=== PATIENT | female | born 1985 | race American Indian/Alaskan Native ===

== ENCOUNTER 2021-02-18 20:17 | Observation (INO) | payer OTHER ==
--- NOTE | 2021-02-18 20:30 | Emergency Department Report ---
HPI - General Time Seen by Provider: 02/18/21 20:19 - HPI HPI: This is a 35-year-old -Armenian female presents to the emergency department via EMS from home with a complaint of weakness, hypoglycemia, and then left-sided numbness. The patient says that she is unsure who called for 911 but it must have been a family member and the initial EMS call was for weakness. Patient was found to have a blood sugar of about 50. EMS says that she was fatigued but otherwise appeared oriented. She was given some sugar in her Accu-Chek went up to about 70. In route the patient began complaining of left-sided numbness or decreased sensation. Patient denies any past medical hi story. She denies any fever, vision change, slurred speech, headache. The patient was recently diagnosed with being positive for COVID-19. ED Review of Systems ROS: Stated complaint: HYPOGLYCEMIA/ POSS STOKE Other details as noted in HPI Comment: All other systems reviewed and negative Constitutional: denies: chills, fever Eyes: denies: eye pain, vision change ENT: denies: ear pain, throat pain Respiratory: denies: cough, shortness of breath Cardiovascular: denies: chest pain, palpitations Gastrointestinal: denies: abdominal pain, vomiting Genitourinary: denies: dysuria, discharge Musculoskeletal: denies: back pain, arthralgia Skin: denies: rash, lesions Neurological: weakness, numbness Physical Exam - Physical Exam Physical Exam: GENERAL: The patient is well-developed well-nourished. HENT: Normocephalic. Atraumatic. Patient has moist mucous membranes. EYES: Extraocular motions are intact. NECK: Supple. Trachea is midline. CHEST/LUNGS: Clear to auscultation. There is no respiratory distress noted. HEART/CARDIOVASCULAR: Regular. There is no tachycardia. There is no murmur. ABDOMEN: Abdomen is soft, nontender. Patient has normal bowel sounds. There is no abdominal distention. SKIN: Skin is warm and dry. NEURO: The patient is awake, alert, and oriented. The patient is cooperative. No facial asymmetry. Cranial nerves II through XII grossly intact. There is subjective decrease sensation to the left upper and lower extremity when compared to the right. Normal speech. MUSCULOSKELETAL: There is no tenderness or deformity. There is no limitation range of motion. ED Medical Decision Making - Lab Data Result diagrams: 02/18/21 20:28 02/18/21 20:28 Lab Results 02/18/21 02/18/21 02/18/21 Range/Units 20:28 20:28 20:28 WBC 7.0 (4.5-11.0) K/mm3 RBC 4.50 (3.65-5.03) M/mm3 Hgb 13.6 (10.1-14.3) gm/dl Hct 40.1 (30.3-42.9) % MCV 89 (79-97) fl MCH 30 (28-32) pg MCHC 34 (30-34) % RDW 13.3 (13.2-15.2) % Plt Count 286 (140-440) K/mm3 Lymph % (Auto) 40.6 H (13.4-35.0) % Burke % (Auto) 8.1 H (0.0-7.3) % Eos % (Auto) 0.7 (0.0-4.3) % Baso % (Auto) 0.5 (0.0-1.8) % Lymph # (Auto) 2.8 (1.2-5.4) K/mm3 Burke # (Auto) 0.6 (0.0-0.8) K/mm3 Eos # (Auto) 0.1 (0.0-0.4) K/mm3 Baso # (Auto) 0.0 (0.0-0.1) K/mm3 Seg Neutrophils % 50.1 (40.0-70.0) % Seg Neutrophils # 3.5 (1.8-7.7) K/mm3 PT 12.6 (12.2-14.9) Sec. INR 0.89 (0.87-1.13) APTT 25.2 (24.2-36.6) Sec. Thrombin Time 16.3 (15.1-19.6) Sec. Sodium 139 (137-145) mmol/L Potassium 3.9 (3.6-5.0) mmol/L Chloride 103.5 (98-107) mmol/L Carbon Dioxide 26 (22-30) mmol/L Anion Gap 13 mmol/L BUN 14 (7-17) mg/dL Creatinine 0.8 (0.6-1.2) mg/dL Estimated GFR > 60 ml/min BUN/Creatinine Ratio 18 % Glucose 68 (65-100) mg/dL Calcium 9.7 (8.4-10.2) mg/dL Total Bilirubin 0.20 (0.1-1.2) mg/dL AST 14 (5-40) units/L ALT 12 (7-56) units/L Alkaline Phosphatase 50 (35-129) units/L Total Creatine Kinase 145 H (30-135) units/L CK-MB (CK-2) 1.3 (0.0-4.0) ng/mL CK-MB (CK-2) Rel Index 0.8 (0-4) Troponin T < 0.010 (0.00-0.029) ng/mL Total Protein 7.4 (6.3-8.2) g/dL Albumin 4.2 (3.9-5) g/dL Albumin/Globulin Ratio 1.3 % TSH (0.270-4.200) mlU/mL /03/03 Range/Units 20:28 WBC (4.5-11.0) K/mm3 RBC (3.65-5.03) M/mm3 Hgb (10.1-14.3) gm/dl Hct (30.3-42.9) % MCV (79-97) fl MCH (28-32) pg MCHC (30-34) % RDW (13.2-15.2) % Plt Count (140-440) K/mm3 Lymph % (Auto) (13.4-35.0) % Burke % (Auto) (0.0-7.3) % Eos % (Auto) (0.0-4.3) % Baso % (Auto) (0.0-1.8) % Lymph # (Auto) (1.2-5.4) K/mm3 Burke # (Auto) (0.0-0.8) K/mm3 Eos # (Auto) (0.0-0.4) K/mm3 Baso # (Auto) (0.0-0.1) K/mm3 Seg Neutrophils % (40.0-70.0) % Seg Neutrophils # (1.8-7.7) K/mm3 PT (12.2-14.9) Sec. INR (0.87-1.13) APTT (24.2-36.6) Sec. Thrombin Time (15.1-19.6) Sec. Sodium (137-145) mmol/L Potassium (3.6-5.0) mmol/L Chloride (98-107) mmol/L Carbon Dioxide (22-30) mmol/L Anion Gap mmol/L BUN (7-17) mg/dL Creatinine (0.6-1.2) mg/dL Estimated GFR ml/min BUN/Creatinine Ratio % Glucose (65-100) mg/dL Calcium (8.4-10.2) mg/dL Total Bilirubin (0.1-1.2) mg/dL AST (5-40) units/L ALT (7-56) units/L Alkaline Phosphatase (35-129) units/L Total Creatine Kinase (30-135) units/L CK-MB (CK-2) (0.0-4.0) ng/mL CK-MB (CK-2) Rel Index (0-4) Troponin T (0.00-0.029) ng/mL Total Protein (6.3-8.2) g/dL Albumin (3.9-5) g/dL Albumin/Globulin Ratio % TSH 3.030 (0.270-4.200) mlU/mL - EKG Data -: EKG Interpreted by Pa EKG shows normal: sinus rhythm, axis, intervals, QRS complexes, ST-T waves Rate: normal - EKG Data When compared to previous EKG there are: previous EKG unavailable Interpretation: normal EKG - Radiology Data Radiology results: report reviewed NONENHANCED CT SCAN OF THE BRAIN: INDICATION: Stroke symptoms. TECHNIQUE: Routine CT head without contrast. Sagittal and coronal reformatted images were obtained. All CT scans at this location are performed using CT dose reduction for ALARA by means of automated exposure control. COMPARISON: None. FINDINGS: BRAIN / INTRACRANIAL CONTENTS: Hemorrhage: No intracranial hemorrhage; no subarachnoid hemorrhage Stroke mimics: No subdural or epidural hematoma or space taking lesion Acute/subacute territorial infarction: Grajeda-white matter interface: No blurring; normal Insular cortex: Normal Basal ganglia: Normal Wedge shaped parenchymal low density area: Not present Cortical sulci: Not effaced Lacunar infarctions: No acute/subacute lacunae Vasculopathy: Dense middle cerebral artery sign: Not present Internal carotid artery terminus: Normal Basilar artery:Normal Middle cerebral artery branches in the sylvian fissure (Dot sign): Normal Calcified embolus: Not present ASPECT score: 10 Chronic lesions: None White matter: Craniocervical junction: Normal Orbits: Normal Paranasal sinuses/mastoids: Trace fluid accumulation in the left maxillary sinus; mucosal thickening in the left anterior ethmoid air cells Additional findings: None IMPRESSION: No acute subacute infarction - Medical Decision Making EMS was initially called on this patient due to some weakness. She was found to be Covid positive a few days ago. EMS found the patient to have a blood sugar of about 50. She was given some glucose by EMS and blood sugar went up to about 70. At some point during the EMS evaluation the patient complained of left- sided numbness. I evaluated the patient upon arrival and once again the patient says that she has a change in sensation, if not a decrease in sensation, to the left upper and lower extremities when compared to the right side. It is difficult to differentiate between paresthesias and numbness given the patient's description. The patient is a one on the NIH stroke scale, but the symptoms started within 1 hour of presentation so a code stroke was initiated. The patient was seen by the telemedicine neurologist, Dr. Conner, immediately upon return from CT imaging. CT head without contrast did not show any large vessel occlusion, hemorrhage, or any other acute process. Dr. Conner gave the patient a NIH stroke scale of one as well I did not feel that the patient needed CT angiography imaging. However, he did recommend admission for MRI of the brain. Patient's labs have been unremarkable including CBC, metabolic panel, normal thyroid function, negative troponin. EKG did not have any morphology consistent with ST elevation myocardial infarction. Patient will be admitted to the hospital for further evaluation treatment was accepted for admission by the hospitalist, Dr. Conde. Critical Care Time: No Critical care attestation.: If time is entered above; I have spent that time in minutes in the direct care of this critically ill patient, excluding procedure time. ED Disposition Clinical Impression: Stroke-like symptoms, COVID-19, Left sided numbness Disposition: OP ADMIT IP TO THIS HOSP Is pt being admited?: Yes Condition: Fair Time of Disposition: 22:06
[2021-02-18 20:40] LABS: Basophils % (Auto) 0.5 % (0.0-1.8); Eosinophils # (Auto) 0.1 K/mm3 (0.0-0.4); Eosinophils % (Auto) 0.7 % (0.0-4.3); Hematocrit 40.1 % (30.3-42.9); Hemoglobin 13.6 gm/dl (10.1-14.3); Lymphocytes # (Auto) 2.8 K/mm3 (1.2-5.4); Lymphocytes % (Auto) 40.6 % (13.4-35.0); Mean Corpuscular HGB Conc 34 % (30-34); Mean Corpuscular Volume 89 fl (79-97); Monocytes # (Auto) 0.6 K/mm3 (0.0-0.8); Monocytes % (Auto) 8.1 % (0.0-7.3); Platelet Count 286 K/mm3 (140-440); Red Cell Distribution Width 13.3 % (13.2-15.2)
--- NOTE | 2021-02-18 20:45 | Cat Scan Report ---
NONENHANCED CT SCAN OF THE BRAIN: INDICATION: Stroke symptoms. TECHNIQUE: Routine CT head without contrast. Sagittal and coronal reformatted images were obtained. A ll CT scans at this location are performed using CT dose reduction for ALARA by means of automated ex posure control. COMPARISON: None. FINDINGS: BRAIN / INTRACRANIAL CONTENTS: Hemorrhage: No intracranial hemorrhage; no subarachnoid hemorrhage Stroke mimics: No subdural or epidural hematoma or space taking lesion Acute/subacute territorial infarction: Grajeda-white matter interface: No blurring; normal Insular cortex: Normal Basal ganglia: Normal Wedge shaped parenchymal low density area: Not present Cortical sulci: Not effaced Lacunar infarctions: No acute/subacute lacunae Vasculopathy: Dense middle cerebral artery sign: Not present Internal carotid artery terminus: Normal Basilar artery:Normal Middle cerebral artery branches in the sylvian fissure (Dot sign): Normal Calcified embolus: Not present ASPECT score: 10 Chronic lesions: None White matter: Craniocervical junction: Normal Orbits: Normal Paranasal sinuses/mastoids: Trace fluid accumulation in the left maxillary sinus; mucosal thickening in the left anterior ethmoid air cells Additional findings: None IMPRESSION: No acute subacute infarction This exam was performed as part of a code stroke protocol. The exam was completed at [facility] on 02/18/2021 7:36 PM. The exam was reviewed at 7:39 PM and ER physician was notified at 7:41 PM. Signer Name: Cathy Clay MD Signed: 02/18/2021 8:41 PM Workstation Name: [id number]
[2021-02-18 20:47] LABS: INR 0.89 (0.87-1.13); Partial Thromboplastin Time 25.2 Sec. (24.2-36.6)
[2021-02-18 20:48] LABS: Thrombin Time 16.3 Sec. (15.1-19.6)
[2021-02-18 20:58] LABS: Alanine Aminotransferase 12 units/L (7-56); Albumin 4.2 g/dL (3.9-5); BUN/Creatinine Ratio 18; Blood Urea Nitrogen 14 mg/dL (7-17); Calcium 9.7 mg/dL (8.4-10.2); Creatine Kinase MB 1.3 ng/mL (0.0-4.0); Hemolysis Index 2
[2021-02-18] MEDS ORDERED: ASPIRIN 81 MG TAB CHEW PO ONE (21:03)
--- NOTE | 2021-02-18 21:11 | Consultation ---
Medications and Allergies Allergies Allergy/AdvReac Type Severity Reaction Status Date / Time No Known Allergies Allergy Unverified 02/18/21 20:43 Physical Examination - Vital Signs Vital Signs: Vital Signs Pulse Resp Pulse Ox 89 21 99 02/18/21 20:53 02/18/21 20:53 02/18/21 20:53 Results - Laboratory Findings CBC and BMP: 02/18/21 20:28 02/18/21 20:28 Abnormal Lab Findings: Abnormal Labs 02/18/21 02/18/21 20:28 20:28 Lymph % (Auto) 40.6 H [place] % (Auto) 8.1 H Total Creatine Kinase 145 H Assessment and Plan [facility] Consult Note # Demographics Consult Type: Acute Stroke Level 1 (0-4.5 hrs) Patient Location: Emergency Room First Name: Candelaria Last Name: Holger Date of : 1985 Age: 35 Gender: Female Time of Initial Page ( Time): 02/18/2021, 20:20 Time of Return Call ( Time): 02/18/2021, 20:21 # HPI History: 35 yo woman with severe fatigue, shortrness of breath, left-sided weakness, recently COVID positive. Symtpoms improving but still with left-sided numbness Last Known Normal: I have collected independent history specific to time last normal or last known well. We have collaborated with the provider and at this time, we have the most current timeline with the information that is available. 1 hour prior to arrival # Scores Time of exam and NIHSS ( Time): 02/18/2021, 20:43 Level of Consciousness 1a: [0] = Alert; keenly responsive LOC Questions 1b: [0] = Answers both questions correctly LOC Commands 1c: [0] = Performs both tasks correctly Best Gaze 2: [0] = Normal Visual 3: [0] = No visual loss Facial Palsy 4: [0] = Normal symmetrical movements Motor Arm Left 5a: [0] = No drift Motor Arm Right 5b: [0] = No drift Motor Leg Left 6a: [0] = No drift Motor Leg Right 6b: [0] = No drift Limb Ataxia 7: [0] = Absent Sensory 8: [1] = [id number] sensory loss Best Language 9: [0] = No aphasia Dysarthria 10: [0] = Normal Extinction and Inattention 11: [0] = No abnormality NIHSS Total: 1 # Exam Vitals: vital signs reviewed SBP: 131 DBP: 79 # PMH-FH-SH Medications: Oral contraceptives Allergies: NKDA # Assessment Impression: Left-sided numbness. Differential includes stroke, demyelinating, other # Plan Thrombolytic/Intervention: NOT IV Thrombolysis or IA Intervention candidate Thrombolytic Exclusion (< 3 hour window): non-disabling deficit Intraarterial Exclusion: other Symtpoms not suggestive of LVO Imaging: (urgency: routine): MRI Brain without contrast Therapy/Evaluation: NPO until swallow evaluation PT/OT evaluation speech/swallow consultation DVT Prophylaxis: SCD chemical DVT prophylaxis Other: telemetry monitoring would not pursue stroke work-up if MRI is negative I have discussed my recommendations with the referring provider Disposition: admit # Logistics Telemedicine: Interactive 2 way audio and visual telecommunication technology was utilized during this visit
[2021-02-18] MEDS ORDERED: MORPHINE 4 MG/1 ML INJ IV PRN (23:02)
[2021-02-18] MEDS ORDERED: MORPHINE 2 MG/1 ML INJ IV PRN (23:02)
[2021-02-18] MEDS ORDERED: ACETAMINOPHEN 325 MG TAB PO PRN ×2 (23:02)
[2021-02-18] MEDS ORDERED: METOCLOPRAMIDE 10 MG TAB PO PRN (23:02)
[2021-02-18] MEDS ORDERED: MAGNESIUM HYDROXIDE (MOM) ORAL LIQD UDC PO PRN ×2 (23:02)
[2021-02-18] MEDS ORDERED: ONDANSETRON 4 MG/2 ML INJ IV PRN ×2 (23:02)
[2021-02-18] MEDS ORDERED: PROMETHAZINE 25 MG RECT SUPP PR PRN (23:02)
--- NOTE | 2021-02-18 23:18 | History and Physical Report ---
History of Present Illness Date of examination: 02/18/21 Date of admission: 02/18/21 22:06 Chief complaint: Generalized Weakness History of present illness: 35-year-old -Cypriot female who was just recently diagnosed with COVID- 19 was brought into the emergency room today via EMS with a complaint of weakness, hypoglycemia left-sided numbness. Upon arrival of EMS patient was found to have a blood sugar of about 50. She was given some dextrose and repeat Accu-Cheks was said to be above 70. Patient indicates that she was just fatigued and then in route to the hospital was said to have had left-sided numbness and decreased sensation. She denies any headache or dizziness and denies any diaphoresis. She denies any fever or chills, no chest pain or shortness of breath, no nausea vomiting and no abdominal pain. She denies any hematuria or dysuria. Work-up in the emergency room today CT scan of the head was unremarkable. Labs were also within normal limits. Patient was evaluated by the tele-neurologist and recommendation schedule patient for MRI of the brain without contrast. Past History Past Medical History: other (COVID-19 +VE) Past Surgical History: No surgical history Social history: no significant social history Family history: no significant family history Medications and Allergies Allergies Allergy/AdvReac Type Severity Reaction Status Date / Time No Known Allergies Allergy Unverified 02/18/21 20:43 Active Meds: Active Medications Acetaminophen (Acetaminophen 325 Mg Tab) 650 mg PO Q4H PRN PRN Reason: Pain MILD(1-3)/Fever >100.5/OBRIEN Acetaminophen (Acetaminophen 325 Mg Tab) 650 mg PO Q4H PRN PRN Reason: Pain, Mild (1-3) Aspirin (Aspirin 325 Mg Tab) 325 mg PO QDAY JAYNA Atorvastatin Calcium (Atorvastatin 40 Mg Tab) 40 mg PO QHS JAYNA Bisacodyl (Bisacodyl 10 Mg Rect Supp) 10 mg AL QDAY PRN PRN Reason: Constipation Magnesium Hydroxide (Magnesium Hydroxide (Mom) Oral Liqd Udc) 30 ml PO Q4H PRN PRN Reason: Constipation Magnesium Hydroxide (Magnesium Hydroxide (Mom) Oral Liqd Udc) 30 ml PO Q4H PRN PRN Reason: Constipation Metoclopramide HCl (Metoclopramide 10 Mg Tab) 10 mg PO Q6H PRN PRN Reason: Nausea And Vomiting Morphine Sulfate (Morphine 2 Mg/1 Ml Inj) 2 mg IV Q4H PRN PRN Reason: Pain, Moderate (4-6) Morphine Sulfate (Morphine 4 Mg/1 Ml Inj) 4 mg IV Q4H PRN PRN Reason: Pain , Severe (7-10) Ondansetron HCl (Ondansetron 4 Mg/2 Ml Inj) 4 mg IV Q8H PRN PRN Reason: Nausea And Vomiting Ondansetron HCl (Ondansetron 4 Mg/2 Ml Inj) 4 mg IV Q8H PRN PRN Reason: Nausea And Vomiting Promethazine HCl (Promethazine 25 Mg Rect Supp) 25 mg AL Q6H PRN PRN Reason: Nausea And Vomiting Sodium Chloride (Sodium Chloride 0.9% 10 Ml Flush Syringe) 10 ml IV BID JAYNA Sodium Chloride (Sodium Chloride 0.9% 10 Ml Flush Syringe) 10 ml IV PRN PRN PRN Reason: LINE FLUSH Sodium Chloride (Sodium Chloride 0.9% 10 Ml Flush Syringe) 10 ml INJ PRN PRN PRN Reason: LINE FLUSH Review of Systems Constitutional: weakness Ears, nose, mouth and throat: no nasal congestion, no sore throat Cardiovascular: no chest pain, no palpitations Respiratory: no cough, no shortness of breath Gastrointestinal: no abdominal pain, no nausea, no vomiting, no diarrhea Genitourinary Female: no pelvic pain, no flank pain, no dysuria, no hematuria Musculoskeletal: no neck pain, no low back pain Integumentary: no rash, no pruritis Neurological: no headaches, no confusion Psychiatric: no anxiety, no depression Endocrine: no polyphagia, no polydipsia, no polyuria, no nocturia Exam - Constitutional Vitals: Temp Pulse Resp BP Pulse Ox 98.5 F 99 H 18 111/69 100 02/18/21 21:01 02/18/21 21:01 02/18/21 22:45 02/18/21 20:58 02/18/21 22:45 General appearance: Present: no acute distress, well-nourished - EENT Eyes: Present: PERRL, EOM intact. Absent: scleral icterus ENT: hearing intact, clear oral mucosa, dentition normal - Neck Neck: Present: supple, normal ROM - Respiratory Respiratory effort: normal Respiratory: bilateral: CTA - Cardiovascular Rhythm: regular Heart Sounds: Present: S1 & S2. Absent: gallop, systolic murmur, diastolic murmur, rub - Extremities Extremities: no ischemia, pulses intact, pulses symmetrical, No edema, normal temperature, normal color, Full ROM Peripheral Pulses: within normal limits - Abdominal General gastrointestinal: Present: soft, non-tender, non-distended, normal bowel sounds. Absent: mass - Integumentary Integumentary: Present: clear, warm, dry. Absent: rash - Musculoskeletal Musculoskeletal: strength equal bilaterally - Psychiatric Psychiatric: appropriate mood/affect, intact judgment & insight, memory intact, cooperative - Neurologic Neurologic: CNII-XII intact, no focal deficits, moves all extremities HEART Score - HEART Score Troponin: Troponin T < 0.010 ng/mL (0.00-0.029) 02/18/21 20:28 Results - Labs CBC & Chem 7: 02/19/21 04:31 02/18/21 20:28 Labs: Abnormal lab results 02/18/21 02/18/21 Range/Units 20:28 20:28 Lymph % (Auto) 40.6 H (13.4-35.0) % Cotton % (Auto) 8.1 H (0.0-7.3) % Total Creatine Kinase 145 H (30-135) units/L Assessment and Plan - Patient Problems (1) Left sided numbness Current Visit: Yes Status: Acute Plan to address problem: Etiology is unclear. Patient will be worked up for possible CVA. She has been scheduled for MRI of the brain and also the carotid Doppler. We will schedule patient for neurology evaluation. (2) Hypoglycemia Current Visit: Yes Status: Acute Plan to address problem: Etiology is unclear. Patient has had administration of dextrose. We will monitor Accu-Cheks closely. (3) COVID-19 Current Visit: Yes Status: Acute Plan to address problem: Patient was just recently diagnosed with COVID-19. Appears asymptomatic.Awaits further testing here. She however indicates that she got the pfitzer Covid vaccination We will place consult to infectious disease for further recommendations. (4) DVT prophylaxis Current Visit: Yes Status: Acute Plan to address problem: Patient placed on subcutaneous heparin. (5) Full code status Current Visit: Yes Status: Acute Plan to address problem: Patient is a full code.
[2021-02-19 05:28] LABS: Basophils % (Auto) 0.3 % (0.0-1.8); Eosinophils # (Auto) 0.1 K/mm3 (0.0-0.4); Eosinophils % (Auto) 0.8 % (0.0-4.3); Hematocrit 38.3 % (30.3-42.9); Lymphocytes # (Auto) 2.9 K/mm3 (1.2-5.4); Lymphocytes % (Auto) 42.3 % (13.4-35.0); Mean Corpuscular HGB Conc 34 % (30-34); Mean Corpuscular Volume 90 fl (79-97); Monocytes # (Auto) 0.6 K/mm3 (0.0-0.8); Monocytes % (Auto) 8.7 % (0.0-7.3); Platelet Count 257 K/mm3 (140-440); Red Blood Count 4.27 M/mm3 (3.65-5.03); Red Cell Distribution Width 13.1 % (13.2-15.2)
[2021-02-19 05:34] LABS: INR 0.92 (0.87-1.13)
[2021-02-19 05:45] LABS: Blood Urea Nitrogen 14 mg/dL (7-17); Calcium 9.4 mg/dL (8.4-10.2); Chol/HDL Ratio 1.87 %; HDL Cholesterol 64 mg/dL (40-59); Hemolysis Index 6; LDL Cholesterol,Direct 57 mg/dL (50-130)
[2021-02-19 06:10] LABS: BUN/Creatinine Ratio 23
--- NOTE | 2021-02-19 08:35 | Discharge Summary ---
Providers - Providers Date of Admission: 02/18/21 22:06 Attending physician: NICK CONTRERAS MD 02/18/21 23:02 Consult to Physician [CONS] Routine Comment: Consulting Provider: JEMAL RAYO Physician Instructions: Reason For Exam: COVID-19 +VE 02/18/21 23:04 Consult to Dietitian/Nutrition [CONS] Routine Physician Instructions: Reason For Exam: Reason for Consult: Nutrition Recommendations Reason for Consult: Diet education Occupational Therapy Evaluate and Treat [CONS] Routine Comment: Reason For Exam: Neuro deficits Physical Therapy Evaluation and Treat [CONS] Routine Comment: Reason For Exam: Neuro deficits 02/18/21 23:08 Speech Therapy Evaluation and Treat [CONS] Routine Reason For Exam: swallow eval Primary care physician: [employer] Hospitalization Reason for admission: Generalized weakness Condition: Stable Hospital course: 35-year-old -Turkish female who was just recently diagnosed with COVID- 19 was brought into the emergency room today via EMS with a complaint of weakness, hypoglycemia left-sided numbness. Upon arrival of EMS patient was found to have a blood sugar of about 50. She was given some dextrose and repeat Accu-Cheks was said to be above 70. Patient indicates that she was just fatigued and then in route to the hospital was said to have had left-sided numbness and decreased sensation. She denies any headache or dizziness and denies any diaphoresis. She denies any fever or chills, no chest pain or shortness of breath, no nausea vomiting and no abdominal pain. She denies any hematuria or dysuria. Work-up in the emergency room today CT scan of the head was unremarkable. Labs were also within normal limits. Patient was evaluated by the tele-neurologist and recommendation schedule patient for MRI of the brain without contrast. Patient today is doing well no acute distress. She was diagnosed with COVID-19 outpatient. And is doing well not requiring oxygen the patient is fully vaccinated. We discussed the negative MRI's report. On her weakness could be secondary to the hypoglycemia. She is to follow-up with her regular doctor outpatient Hypoglycemia COVID 19 Fatigue syndrome likely secondary to COVID19 ?Anxiety Generalized weakness Obesity ?TIA-doubt Disposition: HOME / SELF CARE / HOMELESS Final Discharge Diagnosis (Prints w/discharge instructions): Hypoglycemia with fatigue Time spent for discharge: 35 mins Core Measure Documentation - Palliative Care Palliative Care/ Comfort Measures: Not Applicable - Core Measures Any of the following diagnoses?: none Exam - Physical Exam Narrative exam: VITAL SIGNS: Reviewed. GENERAL: The patient appears normally developed, Vital signs as documented. HEAD: No signs of head trauma. EYES: Pupils are equal. Extraocular motions intact. EARS: Hearing grossly intact. MOUTH: Oropharynx is normal. NECK: No adenopathy, no JVD. CHEST: Chest with clear breath sounds bilaterally. No wheezes, rales, or rhonchi. CARDIAC: Regular rate and rhythm. S1 and S2, without murmurs, gallops, or rubs. VASCULAR: No Edema. Peripheral pulses normal and equal in all extremities. ABDOMEN: Soft, non tender and non distended. No rebound or guarding, and no masses palpated. Bowel Sounds normal. MUSCULOSKELETAL: Good range of motion of all major joints. Extremities without clubbing, cyanosis or edema. NEUROLOGIC EXAM: Alert and oriented x 3 No focal sensory or strength deficits. Speech normal. Follows commands. PSYCHIATRIC: Mood normal. SKIN: detail exam as documented in skin assessment - Constitutional Vitals: Temp Pulse Resp BP Pulse Ox 98.5 F 99 H 18 110/71 100 02/18/21 21:01 02/18/21 21:01 02/18/21 22:45 02/19/21 06:10 02/19/21 06:10 Plan Activity: advance as tolerated, fall precautions Diet: low fat Special Instructions: record daily weights, record daily BP diary, record blood sugar diary Plan of Treatment: Must follow with PCP for further work up on hypoglycemia Continue to follow all CDC guidelines, remember although you are vaccinated, you can still spread COVID 19. Ensure to protect your family and everyone around you. Follow up with: PRIMARY CAREMD [Primary Care Provider] - 3-5 Days MARILYN RODRIGUEZ MD [Staff Physician] - 7 Days Forms: Work/School Release Form Prescriptions: AtorvaSTATin [Lipitor] 40 mg PO QHS #30 tablet Aspirin 325 mg PO QDAY #30 tablet Dexamethasone 6 mg PO DAILY #8 tablet Ascorbic Acid [Vitamin C] 1,000 mg PO DAILY #30 tablet Cholecalciferol (Vitamin D3) [Vitamin D3] 5,000 unit PO DAILY #30 tablet Zinc Sulfate 220 mg PO DAILY #30 capsule
[2021-02-19] MEDS ORDERED: ASPIRIN 325 MG TAB PO SCH (10:00)
--- NOTE | 2021-02-19 10:24 | Magnetic Resonance Report ---
MRI BRAIN WITHOUT CONTRAST INDICATION / CLINICAL INFORMATION: stroke, lt sided weakness, COVID 19 Patient has braces, metal artifact, best possible exam.. TECHNIQUE: Multisequence, multiplanar images were obtained. COMPARISON: CT head 02/18/2021 FINDINGS: CEREBRAL and CEREBELLAR HEMISPHERES: No evidence of mass or mass effect. No midline shift. No acute hemorrhage. No diffusion restriction to suggest acute infarct. No extra-axial fluid collection. T here is moderate susceptibility artifact in the frontal regions on the diffusion sequence and gradien t sequences which is probably secondary to dental work. VENTRICLES: Normal in size and configuration for age. VISUALIZED ORBITS: No significant abnormality. VISUALIZED PARANASAL SINUSES: No significant abnormality. ADDITIONAL FINDINGS: None. IMPRESSION: 1. No acute intracranial abnormality. Signer Name: Alvarado Velazquez Jr, MD Signed: 02/19/2021 10:20 AM Workstation Name: [id number]
[2021-02-19 11:23] VITALS: BP 100/45
--- NOTE | 2021-02-19 13:30 | Vascular Lab Report ---
DUPLEX DOPPLER ULTRASOUND CAROTID, BILATERAL INDICATION / CLINICAL INFORMATION: stroke. COMPARISON: None available. FINDINGS: RIGHT CAROTID: - PLAQUE ESTIMATE (%): < 50% - CCA velocity: 109 cm/sec. - ICA peak systolic velocity: 79 cm/sec. - ICA/CCA PSV Ratio: 0.72 Right Vertebral Artery: Antegrade flow. LEFT CAROTID: - PLAQUE ESTIMATE (%): < 50% - CCA velocity: 97 cm/sec. - ICA peak systolic velocity: 86 cm/sec. - ICA/CCA PSV Ratio: 0.89 Left Vertebral Artery: Antegrade flow. IMPRESSION: 1. Right Internal Carotid Artery: Less than 50% diameter stenosis. 2. Left Internal Carotid Artery: Less than 50% diameter stenosis. Velocity criteria are extrapolated from diameter data as defined by the Society of Radiologists in Ul trasound Consensus Conference, Radiology 2003; 229;340-346. NO STENOSIS (NORMAL) - Plaque = none; ICA PSV < 125 cm/sec; ICA/CCA PSV Ratio < 2.0 <50% STENOSIS - Plaque < 50%; ICA PSV < 125 cm/sec; ICA/CCA PSV Ratio < 2.0 50-69% STENOSIS - Plaque > 50%; ICA PSV = 125-230 cm/sec; ICA/CCA PSV Ratio = 2.0-4.0 >70% BUT <100% STENOSIS - Plaque > 50%; ICA PSV > 230 cm/sec; ICA/CCA PSV Ratio > 4.0 NEAR OCCLUSION - Plaque = visible lumen; ICA PSV = high/low/none; ICA/CCA PSV Ratio = variable TOTAL OCCLUSION - Plaque = no lumen; ICA PSV = none; ICA/CCA PSV Ratio = N/A Signer Name: Rigo Sprague MD Signed: 02/19/2021 1:25 PM Workstation Name: Your Office [id number]
--- NOTE | 2021-02-19 14:33 | Electrocardiograph Report ---
[facility] Test Date: 2021-02-18 Test Time: 22:10:58 Pat Name: KAROLINA DUKE Department: Room: [place] [address] Gender: F Chemistry Associate: THADDEUS : 1985 Requested By: ONEYDA EARL Order Number: [id number] Reading MD: Lázaro Taylor Measurements Intervals [place] Rate: 82 P: 35 DC: 157 QRS: 18 QRSD: 79 T: 33 QT: 340 QTc: 398 Interpretive Statements Sinus rhythm Early repolarization ST changes No previous ECG available for comparison Electronically Signed On 02-19-2021 14:33:35 EDT by Lázaro Taylor
== END 2021-02-19 11:42 | disposition home or self-care (01) ==
LOC: ED 20:17 → 3A 22:06
PROVIDERS: ADMIT Internal Medicine Geriatric Medicine; ATTEND Internal Medicine
DX: U07.1 COVID-19 (principal); E16.2 Hypoglycemia, unspecified; R20.0 Anesthesia of skin; R29.90 Unspecified symptoms and signs involving the nervous system; E66.9 Obesity, unspecified; R53.83 Other fatigue; Z79.82 Long term (current) use of aspirin; Z79.899 Other long term (current) drug therapy; Z98.890 Other specified postprocedural states; Z68.35 Body mass index [BMI] 35.0-35.9, adult
CPT/HCPCS: 36415; 70450; 70551; 80048; 80053; 80061; 82550; 82553; 84443; 84484; 85025; 85610; 85670; 85730; 93005; 93880; 99285; G0378; U0003